=== PATIENT | female | born 1975 | race Caucasian/White ===

== ENCOUNTER 2017-11-13 15:41 | Emergency (ER) | payer MEDICAID, OTHER ==
[~2017-11-13] VITALS: Ht 170.2 cm; Wt 55.4 kg
[~2017-11-13 15:41] MED LIST: CEPH250C92 PO; CYCL-145; DOXY-200 PO; HYDR-3965 PO; PENI500T2 PO
[2017-11-13] MEDS ORDERED: LORA0.5T PO (17:04)
[2017-11-13] MEDS ORDERED: LORazepam 1 MG tablet PO ONE (17:10)
[2017-11-13 17:30] VITALS: BP 133/84
== END 2017-11-13 17:32 | disposition home or self-care (01) ==
LOC: ER 15:42
DX: F15.10 Other stimulant abuse, uncomplicated (principal); F41.9 Anxiety disorder, unspecified; F12.10 Cannabis abuse, uncomplicated; Z59.0 Homelessness
CPT/HCPCS: 99284

== ENCOUNTER 2022-04-03 10:32 | Emergency (ER) | payer MEDICAID, OTHER ==
[~2022-04-03] VITALS: Ht 170.2 cm; Wt 63.6 kg
[~2022-04-03 10:32] MED LIST changes: -DOXY-200 PO; +DOXY-243 PO
[2022-04-03 12:44] LABS: BASOPHILS % (AUTO) 0.4 % (0-1); EOSINOPHILS # (AUTO) 0.2 X10'3 (0-0.9); EOSINOPHILS % (AUTO) 2.6 % (0-6); HEMATOCRIT 33.7 % (35.0-45.0); HEMOGLOBIN 11.1 g/dl (12.0-16.0); LYMPHOCYTES % (AUTO) 13.4 % (21-51); MEAN CORPUSCULAR HEMOGLOBIN 27.4 PG (27.0-31.0); MEAN CORPUSCULAR HGB CONC 32.8 g/dL (33.0-36.5); MEAN CORPUSCULAR VOLUME 83.5 FL (78-98); MONOCYTES # (AUTO) 0.8 X10'3 (0-0.9); MONOCYTES % (AUTO) 10.8 % (2-12); NEUTROPHILS # (AUTO) 5.5 X10'3 (1.8-7.7); NEUTROPHILS % (AUTO) 72.8 % (42-75); PLATELET COUNT 226 X10'3 (140-440); RED BLOOD COUNT 4.03 X10'6 (4.20-5.60); RED CELL DISTRIBUTION WIDTH 14.2 % (11.5-14.5); WHITE BLOOD COUNT 7.6 X10'3 (4.5-11.0)
[2022-04-03 13:10] LABS: ALANINE AMINOTRANSFERASE 36 U/L (12-78); ALBUMIN 2.9 G/DL (3.4-5.0); ALBUMIN/GLOBULIN RATIO 0.8 (1.1-1.5); ALKALINE PHOSPHATASE 69 IU/L (46-116); ANION GAP 8 (8-16); ASPARTATE AMINO TRANSFERASE 26 U/L (10-37); BILIRUBIN,TOTAL 0.3 MG/DL (0.1-1.0); BLOOD UREA NITROGEN 7 MG/DL (7-18); BUN/CREATININE RATIO 11.9 (6.6-38.0); CALCIUM 8.6 MG/DL (8.5-10.1); CHLORIDE 105 MMOL/L (99-107); CREATININE 0.59 MG/DL (0.40-0.90); GLUCOSE 99 MG/DL (70-104); POTASSIUM 3.6 MMOL/L (3.5-5.1); SODIUM 144 MMOL/L (135-145); TOTAL CARBON DIOXIDE 30.6 MMOL/L (24-32); TOTAL PROTEIN 6.7 G/DL (6.4-8.2); eGFR > 90 ML/MIN
[2022-04-03 13:42] LABS: URINE HCG NEGATIVE (NEG)
[2022-04-03 13:47] LABS: CLARITY,URINE SLIGHTLY CLOUDY (Clear); COLOR,URINE YELLOW (Yellow); GLUCOSE, URINE NEGATIVE (Neg); KETONES,URINE NEGATIVE (Neg); LEUKOCYTE ESTERASE ,URINE MODERATE (Neg); NITRITES, URINE POSITIVE (Neg); OCCULT BLOOD,URINE NEGATIVE (Neg); PROTEIN,URINE NEGATIVE (Neg); UROBILINOGEN,URINE 0.2 E.U/dL (0.2-1.0)
[2022-04-03 13:49] LABS: UA COLLECTION TYPE CLN CATCH MIDSTREAM
[2022-04-03 14:03] LABS: SQUAMOUS EPITHELIAL CELL,UR MODERATE /LPF (FEW)
[2022-04-03 14:04] LABS: BACTERIA,URINE 4+ /HPF (Neg); CAL OXALATE CRYSTALS FEW /HPF (NEGATIVE); MUCUS STRANDS FEW /LPF (Neg)
[2022-04-03 14:05] LABS: RBC,URINE 0-2 /HPF (0-2); WBC,URINE 20-30 /HPF (0-4)
[2022-04-03] MEDS ORDERED: NITR100C6 PO (14:29)
[2022-04-03] MEDS ORDERED: nitrofuran monohydrate/nitrofuran macrocrysal 100 MG (MacroBID) capsule PO ONE (14:30)
[2022-04-03 15:43] VITALS: BP 148/75
== END 2022-04-03 15:33 | disposition home or self-care (01) ==
LOC: ER 10:35
DX: N39.0 Urinary tract infection, site not specified (principal); R79.89 Other specified abnormal findings of blood chemistry; F12.90 Cannabis use, unspecified, uncomplicated; F15.20 Other stimulant dependence, uncomplicated; Z59.00 Homelessness unspecified
CPT/HCPCS: 36415; 80053; 81001; 81025; 83880; 85025; 87077; 87088; 87186; 99283